=== PATIENT | male | born 1955 | race Caucasian/White ===

== ENCOUNTER 2017-06-06 12:28 | Emergency (ER) | payer OTHER ==
--- NOTE | 2017-06-06 12:34 | PDOC ---
History of Present Illness - General Chief Complaint: Constipation Stated Complaint: CONSTIPATION WITH WEAKNESS Time Seen by Provider: 06/06/17 12:32 - History of Present Illness Initial Comments: 06/06/17 14:19 Chief complaint: Constipation/presyncope History of present illness: 61 years old past medical history significant for hypertension hyperlipidemia presents to the emergency department with anxiety versus vagal episode. Patient states he's been constipated for the last 3 days felt urge to defecate today was straining on the toilet unable to go stood up walked around again felt urge to defecate went back to the bathroom unable to go then began to feel dizzy lightheaded short of breath palpitations sweaty as if he might pass out laid down on the ground and called an ambulance. Patient did not lose consciousness symptoms resolved was brought to the hospital without incident Upon arrival to the emergency Department patient well-appearing with no complaints at this time except for constipation and sense of feeling need to void symptoms are moderate persistent constant no exacerbating or alleviating factors Past History - Past Medical History Allergies/Adverse Reactions: Allergies Allergy/AdvReac Type Severity Reaction Status Date / Time No Known Allergies Allergy Unverified 06/06/17 12:31 Home Medications: Ambulatory Orders Atorvastatin Ca [Lipitor] 10 mg PO HS 06/06/17 L.acidoph,Paracasei, B.lactis [Probiotic] 1 each PO DAILY 06/06/17 Lisinopril PO DAILY 06/06/17 Ubidecarenone/Vit E Acet [Co Q-10 100 mg Softgel] 1 each PO DAILY 06/06/17 Review of Systems - Review of Systems Comments:: 06/06/17 14:19 ROS: A complete review of 10 out of 10 review of systems is taken and is negative apart from what is previously mentioned below and in the HPI. *Physical Exam - Physical Exam Comments: 06/06/17 14:20 Vitals: Triage Vital signs reviewed General Appearance: no acute distress, well nourished well developed, Head: Atraumatic, Eyes: Pupils equal reactive round, extraocular movement intact Chest Wall: Nontender Cardiac: Regular rate and rhythym, no murmurs, no rubs, no gallops, Lungs: Clear to auscultation bilateral, good air movement bilaterally, Abdomen: Soft, non distended, normal bowel sounds, non tender to palpation Rectal: Impacted distally stool with Extremities: Full range of motion to all extremities, no cyanosis, clubbing, or edema Skin: Warm and dry, no rashes or lesions, no rash, no petechiae Neuro: AOX3; Cranial Nerves 2-12 grossly intact, Strength intact to all extremities, Sensation intact to all extremities,gait normal Psych: normal mood, normal affect Heart Score/ECG Review - ECG Impressions Comment:: 06/06/17 14:26 EKG performed at 1255. Rate of 48 sinus rhythm normal axis no ST elevations or T -wave inversions no evidence of WPW, prolonged QT, Brugada Interpreted by me ED Treatment Course - LABORATORY CBC & Chemistry Diagram: 06/06/17 13:00 06/06/17 13:00 Medical Decision Making - Medical Decision Making 06/06/17 14:27 61 years old hypertension hyperlipidemia presents with either anxiety attack but more likely vagal episode in the context of straining with three-day history of constipation EKG labs ordered No laboratory abnormalities EKG with no abnormalities Patient manually disimpacted by ANNE Jacob after which patient had a bowel movement feels much better Patient stable for outpatient follow-up recommend MiraLAX 1 packet daily 7 days he will follow-up with his doctor this week Findings, the need for follow-up, strict return instructions discussed with patient. *DC/Admit/Observation/Transfer Diagnosis at time of Disposition: Vagal reaction Constipation Qualifiers: Constipation type: unspecified constipation type Qualified Code(s): K59.00 - Constipation, unspecified - Discharge Dispostion Condition at time of disposition: Stable Admit: No - Referrals - Patient Instructions Printed Discharge Instructions: Constipation Additional Instructions: Drink plenty fluids. Take 1 packet of MiraLAX once a day for the next 7 days. Follow-up with your doctor in 1-2 days return to the ED for any severe worsening symptoms or for any concerns. - Post Discharge Activity
[2017-06-06 12:53] VITALS: BP 126/74; PULSE 51; TEMP 98.7; BMI 22.7
[2017-06-06 13:30] LABS: BASO % 0.2 % (0-2.0); EOS % 1.1 % (0-4.5); HEMATOCRIT 45.3 % (35.4-49); HEMOGLOBIN 15.5 GM/dl (11.7-16.9); LYMPH % 5.2 % (8-40); MCH 31.4 pg (25.7-33.7); MCHC 34.2 g/dl (32.0-35.9); MEAN PLT VOLUME 8.4 fl (7.5-11.1); MONO % 5.4 % (3.8-10.2); NEUT % 88.1 % (42.8-82.8); PLATELET COUNT 220 K/MM3 (134-434); RBC 4.92 M/mm3 (4.00-5.60); RDW 12.4 % (11.9-15.9); WHITE BLOOD COUNT 12.1 K/mm3 (4.0-10.8)
[2017-06-06 13:52] LABS: ALK PHOS 49 U/L (32-92); ANION GAP 7 (8-16); BILIRUBIN,TOTAL 0.9 mg/dl (0.2-1.0); BLOOD UREA NITROGEN 17 mg/dl (7-18); CALCIUM 9.1 mg/dl (8.4-10.2); CHLORIDE 104 mmol/L (98-107); CO2 25 mmol/L (22-28); CREATININE 1.3 mg/dl (0.6-1.3); GLUCOSE,RANDOM 105 mg/dl (74-106); SGOT/AST 21 U/L (10-42); SGPT/ALT 18 U/L (10-40); SODIUM 136 mmol/L (136-145); TOT PROT 6.5 g/dl (6.4-8.3)
--- NOTE | 2017-06-08 01:16 | EKG ---
Test Reason : Blood Pressure : / mmHG Vent. Rate : 048 BPM Atrial Rate : 048 BPM P-R Int : 170 ms QRS Dur : 090 ms QT Int : 452 ms P-R-T Axes : 015 010 035 degrees QTc Int : 403 ms SINUS BRADYCARDIA OTHERWISE NORMAL ECG NO PREVIOUS ECGS AVAILABLE Confirmed by EZRA AVALOS MD ([id number]) on 06/08/2017 1:16:14 AM Referred By: Arnold RUSH Confirmed By:EZRA AVALOS MD
== END 2017-06-06 14:38 | disposition home or self-care (01) ==
LOC: FER 12:28
DX: R55 Syncope and collapse (principal); K59.00 Constipation, unspecified; I10 Essential (primary) hypertension; E78.5 Hyperlipidemia, unspecified
CPT/HCPCS: 36415; 80053; 84484; 85025; 93005; 99285-25